=== PATIENT | male | born 1975 | race Caucasian/White ===

== ENCOUNTER 2019-03-07 08:57 | Emergency (ER) | payer SELFPAY ==
[~2019-03-07] VITALS: Ht 188 cm; Wt 100.0 kg
[2019-03-07 09:15] VITALS: Ht 188 cm; Wt 100.0 kg
[2019-03-07 09:42] LABS: BASOPHILS 0.4 % (0-2); EOSINOPHILS 1.8 % (0-7); HEMATOCRIT 40.9 % (42.0-54.0); HEMOGLOBIN 13.9 g/dL (13.5-17.5); IMMATURE GRANULOCYTES 0.1 % (0-5); LYMPHOCYTES 31.9 % (15-50); MCH 27.9 pg (26.0-34.0); MCV 82.1 fL (80.0-100.0); MEAN PLATELET VOLUME 9.4 fL (7.4-10.4); MONOCYTES 7.8 % (2-11); PLATELET COUNT 335 10x3/uL (130-400); RBC 4.98 10x6/uL (4.20-6.10); RDW 16.5 % (11.5-14.5); WBC 9.6 10x3/uL (4.8-10.8)
[2019-03-07 09:46] LABS: APPEARANCE HAZY (CLEAR); BILIRUBIN NEGATIVE (NEGATIVE); COLOR YELLOW (YELLOW); GLUCOSE NEGATIVE (NEGATIVE); KETONE NEGATIVE (NEGATIVE); NITRITE NEGATIVE (NEGATIVE); PROTEIN NEGATIVE (NEGATIVE); UROBILINOGEN NORMAL (NORMAL)
[2019-03-07 09:56] LABS: ALBUMIN 3.5 g/dL (3.4-5.0); ALKALINE PHOSPHATASE 89 U/L (46-116); ALT (SGPT) 49 U/L (10-68); BILIRUBIN - TOTAL 0.37 mg/dL (0.2-1.3); CALC OSMOLALITY 278 mosm/kg (275-300); CALCIUM 8.8 mg/dL (8.5-10.1); CARBON DIOXIDE 25.3 mmol/L (21.0-32.0); CHLORIDE - SERUM 101 mmol/L (98-107); CREATININE - SERUM 1.1 mg/dL (0.6-1.3); GLUCOSE 141 mg/dL (74-106); PROTEIN - SERUM 7.4 g/dL (6.4-8.2); SODIUM 138 mmol/L (136-145); UREA NITROGEN 15 mg/dL (7-18); eGFR NON AFRICAN AMERICAN 78 mL/min (90-120)
[2019-03-07 09:59] LABS: POTASSIUM - SERUM 3.9 mmol/L (3.5-5.1)
[2019-03-07 10:07] LABS: AMYLASE - SERUM 38 U/L (25-115); CKMB 0.7 U/L (0.0-3.6); CREATINE KINASE 138 UL (21-232); LIPASE 110 U/L (73-393); TROPONIN-I < 0.017 ng/mL (0.000-0.060)
[2019-03-07] MEDS ORDERED: ULTRAM50 MG PO (10:57)
[2019-03-07 11:12] VITALS: BP 142/88
== END 2019-03-07 11:05 | disposition home or self-care (01) ==
LOC: D.ER 08:57 → EDSEX 08:57 → D.ER 11:05
PROVIDERS: Family Medicine
DX: R07.81 Pleurodynia (principal)

== ENCOUNTER 2019-12-02 09:36 | Emergency (ER) | payer MEDICAID ==
[~2019-12-02] VITALS: Ht 188 cm; Wt 100.0 kg
[~2019-12-02 09:36] MED LIST: ULTRAM50 MG PO
[2019-12-02 09:40] VITALS: Ht 188 cm; Wt 100.0 kg
[2019-12-02] MEDS ORDERED: CYCLOBENZAPRINE10 MG PO (10:20)
[2019-12-02] MEDS ORDERED: MUPIROCIN22 GM TOPICAL (10:22)
[2019-12-02 10:43] VITALS: BP 129/68
== END 2019-12-02 10:44 | disposition home or self-care (01) ==
LOC: D.ER 09:36
DX: M25.572 Pain in left ankle and joints of left foot (principal); M79.672 Pain in left foot; T14.8XXA Other injury of unspecified body region, initial encounter; M54.9 Dorsalgia, unspecified; W22.8XXA Striking against or struck by other objects, initial encounter; Y93.9 Activity, unspecified; Y92.9 Unspecified place or not applicable

== ENCOUNTER 2019-12-05 12:01 | Emergency (ER) | payer MEDICAID ==
[~2019-12-05] VITALS: Ht 188 cm; Wt 100.0 kg
[~2019-12-05 12:01] MED LIST changes: +CYCLOBENZAPRINE10 MG PO; +MUPIROCIN22 GM TOPICAL
[2019-12-05 12:12] VITALS: Ht 188 cm; Wt 100.0 kg
[2019-12-05] MEDS ORDERED: LEVOFLOXACIN500 MG PO (12:31)
[2019-12-05 12:44] VITALS: BP 126/88
== END 2019-12-05 12:44 | disposition home or self-care (01) ==
LOC: D.ER 12:01
DX: S81.812A Laceration without foreign body, left lower leg, initial encounter (principal); W22.8XXA Striking against or struck by other objects, initial encounter; Y93.9 Activity, unspecified; Y92.9 Unspecified place or not applicable

== ENCOUNTER 2020-12-27 21:57 | Emergency (ER) | payer OTHER ==
[~2020-12-27] VITALS: Ht 188 cm; Wt 81.6 kg
[~2020-12-27 21:57] MED LIST changes: +LEVOFLOXACIN500 MG PO
[2020-12-27 22:10] VITALS: Ht 188 cm; Wt 81.6 kg
[2020-12-27] MEDS ORDERED: BUPRENORPHINE HC8 MG SL (22:12)
[2020-12-27] MEDS ORDERED: ZOLOFT50 MG PO (22:13)
[2020-12-27 23:24] LABS: BILIRUBIN NEGATIVE (NEGATIVE); KETONE NEGATIVE mg/dL (< 1+); NITRITE NEGATIVE (NEGATIVE); UROBILINOGEN NORMAL mg/dL (< 2)
[2020-12-27 23:33] LABS: UDS - AMPHET NEGATIVE QUAL (NEGATIVE); UDS - BARB NEGATIVE QUAL (NEGATIVE); UDS - BENZO NEGATIVE QUAL (NEGATIVE); UDS - COCAINE NEGATIVE QUAL (NEGATIVE); UDS - OPIATE NEGATIVE QUAL (NEGATIVE); UDS - PCP NEGATIVE QUAL (NEGATIVE); UDS - THC POSITIVE QUAL (NEGATIVE)
[2020-12-27 23:36] LABS: BASOPHILS 0.4 % (0-2); EOSINOPHILS 2.7 % (0-7); HEMATOCRIT 34.7 % (42.0-54.0); HEMOGLOBIN 11.5 g/dL (13.5-17.5); LYMPHOCYTES 25.5 % (15-50); MCH 28.1 pg (26.0-34.0); MCHC 33.1 g/dL (31.0-37.0); MCV 84.8 fL (80.0-100.0); MEAN PLATELET VOLUME 7.2 fL (7.4-10.4); MONOCYTES 8.5 % (2-11); NEUTROPHILS 62.9 % (40-80); PLATELET COUNT 360 10x3/uL (130-400); RBC 4.09 10x6/uL (4.20-6.10); RDW 16.9 % (11.5-14.5); WBC 10.9 10x3/uL (4.8-10.8)
[2020-12-27 23:41] LABS: CALC OSMOLALITY 275 mosm/kg (275-300); CALCIUM 8.6 mg/dL (8.5-10.1); CARBON DIOXIDE 28.6 mmol/L (21.0-32.0); CHLORIDE - SERUM 102 mmol/L (98-107); CREATININE - SERUM 0.7 mg/dL (0.6-1.3); POTASSIUM - SERUM 3.6 mmol/L (3.5-5.1); SODIUM 139 mmol/L (136-145); UREA NITROGEN 9 mg/dL (7-18); eGFR NON AFRICAN AMERICAN > 90 mL/min (90-120)
[2020-12-27 23:47] LABS: GLUCOSE 86 mg/dL (74-106)
[2020-12-27 23:57] LABS: ALBUMIN 3.6 g/dL (3.4-5.0); ALKALINE PHOSPHATASE 95 U/L (30-120); ALT (SGPT) 22 U/L (10-68); BILIRUBIN - TOTAL 0.25 mg/dL (0.2-1.3); PROTEIN - SERUM 7.7 g/dL (6.4-8.2); THYROID STIMULATING HORMONE 1.44 uIU/mL (0.36-3.74); TROPONIN-I < 0.017 ng/mL (0.000-0.060)
[2020-12-27 23:59] LABS: LIPASE 45 U/L (73-393)
[2020-12-28 01:29] VITALS: BP 111/59
== END 2020-12-28 01:30 | disposition home or self-care (01) ==
LOC: D.ER 21:57
PROVIDERS: Family Medicine
DX: R53.1 Weakness (principal); D64.9 Anemia, unspecified; R11.2 Nausea with vomiting, unspecified